=== PATIENT | male | born 1965 | race Caucasian/White ===

== ENCOUNTER 2016-09-07 11:09 | Day surgery (SDC) | payer OTHER ==
[~2016-09-07] VITALS: Ht 180.3 cm; Wt 78.0 kg
[~2016-09-07 11:09] MED LIST: 0.9% Sodium Chloride 1,000 ML IV SCH; ALBU90AE IH; Sodium Chloride LOK Flush 10 mL Syringe IV PRN; fentaNYL-PF 50 mCg/mL 2 mL Inj IVPUSH PRN
[2016-09-07 11:30] VITALS: BP 126/98; PULSE 88; RESP 16; O2SAT 98
[2016-09-07 13:06] VITALS: BP 127/79; PULSE 87; RESP 16; O2SAT 97
[2016-09-07 13:18] VITALS: BP 123/81; PULSE 86; RESP 16; O2SAT 97
[2016-09-07 13:25] VITALS: BP 121/83; PULSE 79; RESP 16; O2SAT 96
--- NOTE | 2016-09-07 20:27 | ENDO ---
[address] [address] ENDOSCOPY PROCEDURE PATIENT: KAY ARCNIIEGA : 1965 MR#: [id number] ADMIT: 09/07/2016 JOB ID: [id number] PRIMARY PROVIDER: Keo Chaves DO. PROCEDURE: Colonoscopy with biopsy. INDICATIONS: A 50-year-old male who reports for colon cancer screening. EQUIPMENT: PCF-H180AL. SEDATION: 6 mg Versed, 150 mcg fentanyl. COMPLICATIONS: None identified. BOWEL PREPARATION: Fair at best. There were several areas where there was remnant fibrinous debris submerged in liquid and some of these areas could not get fully cleansed without clogging the scope. PROCEDURE INFORMATION: After the risks and benefits were explained, written and verbal informed consent was obtained, the patient was brought into the endoscopy suite and placed into the left lateral decubitus position. Sedation was achieved using the above stated medications with the addition of oxygen via nasal cannula. Digital rectal examination was accomplished. No significant pathology appreciated. The scope was introduced into the rectum and advanced to the cecum as identified by the appendiceal orifice and ileocecal valve. The scope was slowly withdrawn to carefully examine the mucosa for any defects or lesions. Retroflexed views were accomplished in the rectum. The colon was decompressed. The scope removed from the patient who tolerated the procedure well. FINDINGS: No significant polyps or mass lesions appreciated throughout. There were a few scattered erosions in and around the rectosigmoid region and one of these areas was targeted for histopathology. Otherwise, no evidence of any colitis throughout. Retroflexed views of the rectum disclosed internal hemorrhoids with hypertrophied anal papillae. Otherwise, no pathology throughout. There was maybe some early diverticulosis in the sigmoid. ENDOSCOPIC DIAGNOSIS: 1. Hemorrhoids. 2. Scattered mild focus of rectal erosions. RECOMMENDATIONS: 1. Await histopathology. 2. Repeat colonoscopy will likely be suggested for five years' time with an extra day of liquids and MiraLAX prior to officially prepping.
--- NOTE | 2016-09-08 15:36 | PATH ---
SURGICAL PATHOLOGY Attending Physician:Diya Ca CASE STATUS: Signed Out PATIENT NAME: KAY ARCINIEGA PID: [id number] : 1965 DATE COLLECTED:09/07/2016 21:33 SPECIMEN: Rectum, Biopsy CLINICAL HISTORY: 1). RECTAL BIOPSY FINAL DIAGNOSIS: Rectum, Biopsy: Focal active inflammation. Please see comment. ICD10: K52.9 NOTE: Sections demonstrate superficial portions of colorectal mucosa with scattered neutrophils and an increase in lymphocytes and plasma cells within the lamina propria. There is mild crypt architectural distortion and there are occasional prominent lymphoid aggregates. There is no evidence of cryptitis, crypt abscesses, granulomas, dysplasia, or malignancy. The differential diagnosis includes NSAID use, the effect of sodium-phosphate containing bowel preparation solutions, an acute self-limited bacterial proctitis, and idiopathic inflammatory bowel disease, in the appropriate clinical setting. GROSS DESCRIPTION: The specimen is received in one formalin filled container labeled with the patient's name, sublabeled "rectal" and consists of 2 portions of tissue which aggregate to 0.2 x 0.2 x 0.2 CM. The specimen is entirely submitted in one cassette. 09/07/2016DC ICD-9 CODES: CPT CODES: 1: 53395 Electronically Signed Out Dionna Haq MD [facility] [address], [place] [address] Technical component performed at [facility], [facility] [address], [address]
== END 2016-09-07 23:59 | disposition home or self-care (01) ==
LOC: END 11:09
PROVIDERS: ATTEND Internal Medicine Gastroenterology
DX: Z12.11 Encounter for screening for malignant neoplasm of colon (principal); K57.30 Diverticulosis of large intestine without perforation or abscess without bleeding; K62.89 Other specified diseases of anus and rectum; K64.8 Other hemorrhoids; J45.20 Mild intermittent asthma, uncomplicated; E78.00 Pure hypercholesterolemia, unspecified; Z79.51 Long term (current) use of inhaled steroids
CPT/HCPCS: 45380; 99153; G0500; J2250; J3010; J7030